=== PATIENT | female | born 1995 | race Caucasian/White ===

== ENCOUNTER 2018-05-11 23:09 | Emergency (ER) | payer BC ==
[2018-05-11] MEDS ORDERED: Lidocaine 1% PF 5 ML VIAL ONE (23:58)
[2018-05-11] MEDS ORDERED: cefTRIAXone\\ROCEPHIN 250 MG VIAL ONE (23:58)
[2018-05-14 01:22] LABS: Chlamydia by PCR Not Detected (NotDetected); GC by PCR Not Detected (NotDetected)
== END 2018-05-12 00:22 | disposition home or self-care (01) ==
LOC: ERS 23:09
DX: N73.9 Female pelvic inflammatory disease, unspecified (principal); F17.210 Nicotine dependence, cigarettes, uncomplicated; Z79.899 Other long term (current) drug therapy
CPT/HCPCS: 87480; 87491; 87510; 87591; 87660; 96372; J0696; J2001